=== PATIENT | male | born 1980 ===

== ENCOUNTER 2025-06-30 19:50 | Emergency (ER) | payer OTHER ==
[~2025-06-30] VITALS: Ht 185.4 cm; Wt 106.8 kg
[2025-06-30 21:41] LABS: PLATELET COUNT (AUTO) 377 K/uL (150-450); RED BLOOD CELL COUNT(AUTO) 4.34 MIL/uL (4.50-5.90); RED CELL DISTRIBUTION WIDTH 12.9 % (11.5-14.5); WHITE BLOOD COUNT (AUTO) 8.1 K/uL (4.5-11.0)
[2025-06-30 21:43] LABS: CALCIUM, TOTAL 9.0 mg/dL (8.8-10.5); CREATININE 0.87 mg/dL (0.60-1.30); GLOMERULAR FILTR. RATE CALC > 60 mL/min (>60); GLUCOSE,RANDOM 106 mg/dL (70-110); SODIUM SERUM 137 mmol/L (136-145); UREA NITROGEN, BLOOD 13 mg/dL (7-18)
[2025-06-30 21:52] LABS: LACTIC ACID 1.3 mmol/L (0.4-2.0)
[2025-06-30] MEDS: ACETAMINOPHEN 500 MG TABLET PO ONE (22:52)
[2025-06-30] MEDS: IBUPROFEN 400 MG TABLET PO ONE (22:53)
[2025-06-30 23:30] VITALS: BP 129/77; PULSE 71; RESP 20; TEMP 97.8; O2SAT 100
== END 2025-07-01 02:54 ==
LOC: EMS 19:56
DX: L03.211 Cellulitis of face (principal); J45.909 Unspecified asthma, uncomplicated; Z88.5 Allergy status to narcotic agent
CPT/HCPCS: 80048; 83605; 85025; 87040; 99284